=== PATIENT | female | born 1960 | race Caucasian/White ===

== ENCOUNTER 2025-08-09 12:33 | Outpatient (CLI) | payer BC | END 2025-08-09 12:34 | disposition home or self-care (01) | LOC: CSHULT 12:33 | PROVIDERS: ATTEND Family Medicine | DX: R06.02 Shortness of breath (principal); R53.83 Other fatigue; I34.0 Nonrheumatic mitral (valve) insufficiency; I51.89 Other ill-defined heart diseases | CPT/HCPCS: 93306; 94060; 94664; 94726; 94729; 94760 ==